=== PATIENT | female | born 1965 | race Caucasian/White ===

== ENCOUNTER 2018-05-11 22:06 | Emergency (ER) | payer MEDICARE ==
[~2018-05-11] VITALS: Ht 170.2 cm; Wt 63.6 kg
[2018-05-11 22:31] VITALS: Ht 170.2 cm; Wt 63.6 kg
[2018-05-11] MEDS ORDERED: LYRICA75 MG (22:33)
[2018-05-11] MEDS ORDERED: LEXAPRO20 MG PO (22:33)
[2018-05-11 22:50] LABS: BASOPHILS 0.1 % (0-2); EOSINOPHILS 1.1 % (0-7); HEMATOCRIT 36.4 % (36.0-48.0); HEMOGLOBIN 12.8 g/dL (12-16); IMMATURE GRANULOCYTES 0.1 % (0-5); LYMPHOCYTES 31.9 % (15-50); MCH 30.8 pg (26.0-34.0); MCHC 35.2 g/dL (31.0-37.0); MCV 87.7 fL (80.0-100.0); MEAN PLATELET VOLUME 10.4 fL (7.4-10.4); NEUTROPHILS 60.8 % (40-80); PLATELET COUNT 217 10x3/uL (130-400); RBC 4.15 10x6/uL (4.00-5.40); RDW 12.5 % (11.5-14.5); WBC 7.2 10x3/uL (4.8-10.8)
[2018-05-11 23:06] LABS: ALBUMIN 3.4 g/dL (3.4-5.0); ALKALINE PHOSPHATASE 55 U/L (46-116); ALT (SGPT) 24 U/L (10-68); BILIRUBIN - TOTAL 0.29 mg/dL (0.2-1.3); CALC OSMOLALITY 272 mosm/kg (275-300); CALCIUM 8.7 mg/dL (8.5-10.1); CARBON DIOXIDE 30.4 mmol/L (21.0-32.0); CHLORIDE - SERUM 102 mmol/L (98-107); CREATININE - SERUM 0.8 mg/dL (0.6-1.3); GLUCOSE 91 mg/dL (74-106); POTASSIUM - SERUM 3.6 mmol/L (3.5-5.1); PROTEIN - SERUM 8.1 g/dL (6.4-8.2); SODIUM 137 mmol/L (136-145); UREA NITROGEN 11 mg/dL (7-18); eGFR NON AFRICAN AMERICAN 80 mL/min (90-120)
[2018-05-11 23:07] LABS: INR 0.98 (0.85-1.17); PROTIME 12.6 SECONDS (11.6-15.0)
[2018-05-11 23:08] LABS: APTT 25.9 SECONDS (22.8-39.4)
[2018-05-11 23:19] LABS: CREATINE KINASE 126 UL (21-215); PRO BNP 290 pg/mL (0-125)
[2018-05-11 23:35] LABS: TROPONIN-I < 0.017 ng/mL (0.000-0.060)
[2018-05-12] MEDS ORDERED: ULTRAM50 MG PO (01:16)
[2018-05-12 02:18] VITALS: BP 139/81
== END 2018-05-12 01:45 | disposition home or self-care (01) ==
LOC: D.ER 22:06
PROVIDERS: Emergency Medicine
DX: M79.7 Fibromyalgia (principal); M54.6 Pain in thoracic spine; M32.9 Systemic lupus erythematosus, unspecified